=== PATIENT | male | born 1960 | race Caucasian/White ===

== ENCOUNTER 2025-02-01 09:39 | Emergency (ER) | payer OTHER ==
[~2025-02-01] VITALS: Ht 185.4 cm; Wt 94.8 kg
[2025-02-01] MEDS ORDERED: ASPIR 8181 M1 (10:13)
[2025-02-01] MEDS ORDERED: ELIQUIS5 M2 PO (12:23)
== END 2025-02-01 12:29 | disposition home or self-care (01) ==
LOC: ER 09:39
DX: I82.811 Embolism and thrombosis of superficial veins of right lower extremity (principal); I82.4Z1 Acute embolism and thrombosis of unspecified deep veins of right distal lower extremity
CPT/HCPCS: 73630; 93971; 99284-25

== ENCOUNTER 2025-03-09 14:05 | Emergency (ER) | payer OTHER ==
[~2025-03-09] VITALS: Ht 182.9 cm; Wt 90.7 kg
[~2025-03-09 14:05] MED LIST: ASPIR 8181 M1; ELIQUIS5 M2 PO
[2025-03-09] MEDS ORDERED: Proparacaine 0.5% Opth Soln 15 ML BTL LEFTEYE ONE (14:10)
[2025-03-09] MEDS ORDERED: NS 1,000 ML IV SCH (14:10)
[2025-03-09] MEDS ORDERED: Fluorescein Sod 1MG Opth Strips LEFTEYE ONE (15:20)
== END 2025-03-09 15:41 | disposition home or self-care (01) ==
LOC: ER 14:05
DX: T54.2X1A Toxic effect of corrosive acids and acid-like substances, accidental (unintentional), initial encounter (principal); T26.62XA Corrosion of cornea and conjunctival sac, left eye, initial encounter; Z86.718 Personal history of other venous thrombosis and embolism; Z79.82 Long term (current) use of aspirin; Z79.01 Long term (current) use of anticoagulants
CPT/HCPCS: 99283; A9270; A9270-GY; J7030